=== PATIENT | female | born 1965 | race Caucasian/White ===

== ENCOUNTER 2016-12-23 07:18 | Day surgery (SDC) | payer OTHER ==
[2016-12-23] MEDS ORDERED: D5 LR 1000 ML 1,000 ML IV ONE (07:30)
[2016-12-23] MEDS ORDERED: DIPRIVAN VIAL 20 ML ONE (08:51)
[2016-12-23 09:58] VITALS: BP 115/67
== END 2016-12-23 09:30 | disposition home or self-care (01) ==
LOC: SURG1 07:18
PROVIDERS: ATTEND Internal Medicine Gastroenterology
PROC: 0DJ08ZZ Inspection of Upper Intestinal Tract, Via Natural or Artificial Opening Endoscopic (ICD-10-PCS; principal; 2016-12-23 13:45)
PROC: 0DB88ZX Excision of Small Intestine, Via Natural or Artificial Opening Endoscopic, Diagnostic (ICD-10-PCS; principal; 2016-12-23 13:45)
PROC: 0DB68ZX Excision of Stomach, Via Natural or Artificial Opening Endoscopic, Diagnostic (ICD-10-PCS; principal; 2016-12-23 13:45)
DX: R10.13 Epigastric pain (principal); R11.0 Nausea; K20.8 Other esophagitis
CPT/HCPCS: A4217; J3490; J7120

== ENCOUNTER 2016-12-30 07:22 | Day surgery (SDC) | payer OTHER ==
[2016-12-30] MEDS ORDERED: D5 LR 1000 ML 1,000 ML IV ONE (07:26)
[2016-12-30] MEDS ORDERED: DIPRIVAN VIAL 20 ML ONE (09:02)
[2016-12-30] MEDS ORDERED: XYLOCAINE 2 % (PLAIN) ONE (09:03)
[2016-12-30 10:28] VITALS: BP 112/69
== END 2016-12-30 09:45 | disposition home or self-care (01) ==
LOC: SURG1 07:22
PROVIDERS: ATTEND Internal Medicine Gastroenterology
PROC: 0DJD8ZZ Inspection of Lower Intestinal Tract, Via Natural or Artificial Opening Endoscopic (ICD-10-PCS; principal; 2016-12-30 07:30)
PROC: 0DBE8ZX Excision of Large Intestine, Via Natural or Artificial Opening Endoscopic, Diagnostic (ICD-10-PCS; principal; 2016-12-30 07:30)
DX: Z12.11 Encounter for screening for malignant neoplasm of colon (principal); R19.4 Change in bowel habit; R10.84 Generalized abdominal pain
CPT/HCPCS: A4217; J2001; J3490; J7120

== ENCOUNTER 2017-01-08 06:52 | Emergency (ER) | payer OTHER ==
--- NOTE | 2017-01-08 07:07 | DR.FBACK ---
HPI - HPI Comment HPI Comment: FOR ONE WEEK, INCREASING LOWER BACK, RIGHT VALENT[place] AND RIGHT THIGH PAIN. DURING WORK THIS WEEK, SAT FOR LONG PERIODS. NO TRAUMA. NO DYSURIA. <ISSAC GALEANA - Last Filed: 01/09/17 08:39> - Time Seen Time seen: 07:05 - Complaint Chief Complaint Doctor Comments: LOW BACK PAIN GOR FEW DAYS WORSE LAST NIGHT. - Reviewed Nurses Notes Review: Yes - Source History Provided: Patient - Mode of Arrival Mode of Arrival: Wheelchair - Duration Duration: Constant Duration: Days - Location Back Pain Location: Right, Lower, Lumbar Radiation To: Right, Thigh - Severity Severity: Moderate - Quality Quality: Sharp - Context Onset: Spontaneous Circumstance: Spontaneous History of: None - Modifying Factors Worsened By: Movement - Associated Signs and Symptoms Back Pain Symptoms: None Numbness: None Weakness: None <PARIS HILLIARD - Last Filed: 01/10/17 11:36> PMH - PMH Past Surgical History: Yes Surgical History: , Tonsillectomy - Family History Family Medical History: Diabetes Mellitus, Cancer, Hypertension - Social History Do you use any recreational Drugs:: No <PARIS HILLIARD - Last Filed: 01/10/17 11:36> ROS - Review of Systems Constitutional: No Symptoms Reported Eyes: No Symptoms Reported ENTM: No Symptoms Reported Respiratoy: No Symptoms Reported Cardiovascular: No Symptoms Reported Gastrointestinal/Abdominal: No Symptoms Reported Genitourinary: No Symptoms Reported Neurological: No Symptoms Reported Musculoskeletal: No Symptoms Reported, Joint Pain, Muscle Pain, Right, Hip Integumentary: No Symptoms Reported Hematologic/Lymphatic: No Symptoms Reported Endocrine: No Symptoms Reported All Other Systems: Reviewed and Negative <PARIS HILLIARD - Last Filed: 01/10/17 11:36> PE - Respiratory Respiratory Exam: Bilateral Clear to Auscultation <ISSAC GALEANA - Last Filed: 01/09/17 08:39> - General Limitations: No Limitations General Appearance: Alert - Head Head Exam: Normal Inspection - Eyes Eye exam: Normal Appearance - ENT ENT Exam: Normal External Ear Exam - Chest Chest Inspection: Symmetric Chest Wall Rise - Respiratory Respiratory Exam: Normal Lung Sounds Bilat Respiratory Exam: Bilateral Clear to Auscultation - Cardiovascular Cardiovascular Exam: Regular Rate, Normal Rhythm, Normal Heart Sounds - Abdominal Exam Abdominal Exam: Normal Bowel Sounds, Soft. negative: Tenderness - Genitourinary External Exam: Female: Deferred : Speculum Exam (Female): Deferred : Bimanual Exam (female): Deferred - Extremities Extremities Exam: Normal Inspection - Back Back Exam: Tenderness (RT LOWER BACK), (R) CVA Tenderness, Paraspinal Tenderness - Neurological Neurological Exam: Alert, Oriented X3 - Psychiatric Psychiatric Exam: Normal Affect, Normal Mood - Skin Skin Exam: Normal Color <PARIS HILLIARD - Last Filed: 01/10/17 11:36> - Vitals Vital Signs: Temp Pulse Resp BP Pulse Ox 01/08/17 07:08 97.8 F 72 22 136/77 96 12/30/16 09:35 112/69 MDM - Additional Information Additional Information Obtained From: Family - Differential Diagnosis Differential Diagnosis: DJD, Fracture, Musculoskeletal Pain, Pyelonephritis, Strain, Urolithiasis <PARIS HILLIARD - Last Filed: 01/10/17 11:36> Course - Treatment Treatment: SEE ORDERS. IM PAIN MED IN ED. PAIN DECREASING. - Reevaluation 1st: Improved - Education/Counseling Education/Counseling: Patient, Family, Education Educated On: Treatment, Diagnosis, Needs for Follow Up <PARIS HILLIARD - Last Filed: 01/10/17 11:36> ROR - Labs Reviewed Laboratory Results Reviewed?: Yes Result Diagrams: 01/08/17 08:30 01/08/17 08:30 <ISSAC GALEANA - Last Filed: 01/09/17 08:39> - Labs Reviewed Laboratory Results Reviewed?: Yes Result Diagrams: 01/08/17 08:30 01/08/17 08:30 - XRAY XRAY Interpreted by: Radiologist XRAY Findings: REPORT DISCUSS WITH PATIENT. <PARIS HILLIARD - Last Filed: 01/10/17 11:36> - Labs Reviewed Laboratory: WBC 4.8 X10^3/uL (3.6-10.0) 01/08/17 08:30 RBC 4.52 X10^6/uL (3.5-5.4) 01/08/17 08:30 Hgb 13.5 g/dL (12.0-16.0) 01/08/17 08:30 Hct 39.2 % (36.0-47.0) 01/08/17 08:30 MCV 86.8 fL (80.0-100.0) 01/08/17 08:30 MCH 30.0 pg (27.0-34.0) 01/08/17 08:30 MCHC 34.6 g/dL (33.0-35.0) 01/08/17 08:30 RDW 13.1 % (11.6-16.5) 01/08/17 08:30 Plt Count 215 X10^3/uL (150.0-450.0) 01/08/17 08:30 MPV 7.6 fL (7.4-11.0) 01/08/17 08:30 Neut % 65.5 % (42.0-75.0) 01/08/17 08: Lymph % 20.6 % (21.0-51.0) L 01/08/17 08:30 [place] % 11.7 % (0.0-13.0) 01/08/17 08:30 Eos % 1.4 % (0.9-2.9) 01/08/17 08:30 Baso % 0.8 % (0.2-1.0) 01/08/17 08:30 Neut # 3.2 x10^3/uL (2.2-4.8) 01/08/17 08:30 Lymph # 1.0 X10^3/uL (1.3-2.9) L 01/08/17 08:30 [place] # 0.6 x10^3/uL (0.3-0.8) 01/08/17 08:30 Eos # 0.1 x10^3/uL (0.0-0.2) 01/08/17 08:30 Baso # 0.0 X10^3/uL (0.0-0.1) 01/08/17 08:30 Absolute Nucleated RBC 0.0 /100WBC 01/08/17 08:30 D-Dimer < 100 ng/mL (0-400) 01/08/17 08:30 Sodium 143 mmol/L (136-145) 01/08/17 08:30 Corrected Sodium TNP 01/08/17 08:30 Potassium 3.9 mmol/L (3.5-5.1) 01/08/17 08:30 Chloride 108 mmol/L (98-107) H 01/08/17 08:30 Carbon Dioxide 26.3 mmol/L (21-32) 01/08/17 08:30 BUN 11 mg/dL (7-18) 01/08/17 08:30 Creatinine 0.86 mg/dL (0.55-1.02) 01/08/17 08:30 Est GFR (MDRD) Af Amer > 60 (>60) 01/08/17 08:30 Est GFR (MDRD) Non-Af > 60 (>60) 01/08/17 08:30 Glucose 92 mg/dL (65-99) 01/08/17 08:30 Calcium 9.1 mg/dL (8.5-10.1) 01/08/17 08:30 Corrected Calcium TNP 01/08/17 08:30 Total Bilirubin 0.30 mg/dL (0.2-1.0) 01/08/17 08:30 AST 17 Units/L (15-37) 01/08/17 08:30 ALT 25 Units/L (12-78) 01/08/17 08:30 Alkaline Phosphatase 64 Units/L (46-116) 01/08/17 08:30 Total Protein 6.5 g/dL (6.4-8.2) 01/08/17 08:30 Albumin 3.7 g/dL (3.4-5.0) 01/08/17 08:30 Globulin 2.8 g/dL (2.5-4.5) 01/08/17 08:30 Albumin/Globulin Ratio 1.3 Ratio (1.1-2.1) 01/08/17 08:30 Specimen Type Clean catch urine 01/08/17 07:55 Urine Color Yellow (YELLOW) 01/08/17 07:55 Urine Appearance Clear (CLEAR) 01/08/17 07:55 Urine pH 6.0 (5.0 - 8.0) 01/08/17 07:55 Ur Specific [place] 1.025 (1.000-1.030) 01/08/17 07:55 Urine Protein Negative (NEGATIVE) 01/08/17 07:55 Urine Glucose (UA) Negative (NEGATIVE) 01/08/17 07:55 Urine Ketones Negative (NEGATIVE) 01/08/17 07:55 Urine Occult Blood Negative (NEGATIVE) 01/08/17 07:55 Urine Nitrite Negative (NEGATIVE) 01/08/17 07:55 Urine Bilirubin Negative (NEGATIVE) 01/08/17 07:55 Urine Urobilinogen Normal (NORMAL) 01/08/17 07:55 Ur Leukocyte Esterase Negative (NEGATIVE) 01/08/17 07:55 Urine RBC Negative /HPF (NEGATIVE) 01/08/17 07:55 Urine WBC Rare /HPF (NEGATIVE) 01/08/17 07:55 Ur Squamous Epith Cells Few /HPF (NEGATIVE) 01/08/17 07:55 Urine Bacteria Trace /HPF (NEGATIVE) 01/08/17 07:55 Ur Culture Indicated? No/not indicated 01/08/17 07:55 <ISSAC GALEANA - Last Filed: 01/09/17 08:39> <PARIS HILLIARD - Last Filed: 01/10/17 11:36> - Diagnosis Discharge Problem: Low back pain Qualifiers: Chronicity: acute Back pain laterality: bilateral Sciatica presence: with sciatica Sciatica laterality: sciatica of left side Qualified Code(s): M54.42 - Lumbago with sciatica, left side - Discharge Plan Disposition: 01 HOME, SELF-CARE Condition: Stable - Follow ups/Referrals Follow ups/Referrals: NFD,None [Primary Care Provider] - 3 days - Instructions Instructions: Back Pain, Adult, [id number]
[2017-01-08 07:12] VITALS: BP 136/77; BMI 27.3
[2017-01-08] MEDS ORDERED: TORADOL 60 MG VIAL IM ONE (07:13)
[2017-01-08] MEDS ORDERED: NORFLEX INJ IM ONE (07:13)
[2017-01-08] MEDS ORDERED: NORFLEX INJ ONE (07:16)
[2017-01-08] MEDS ORDERED: TORADOL 60 MG VIAL ONE (07:16)
--- NOTE | 2017-01-08 07:59 | CT ---
CT OF THE ABDOMEN AND PELVIS WITHOUT CONTRAST HISTORY: Worsening back pain Comparison: 01/09/2016 Technique: Multiple axial images of the abdomen and pelvis were obtained from the lung bases to the pubic symphy sis without the administration of IV contrast. Dose reduction techniques including Automated Exposur e Control (AEC) and adjustment of mA and kV were utlized. Findings: The heart is normal in size. There is no pericardial effusion. Lung bases are clear without focal con solidation, pleural effusion or pneumothorax. 3 mm right lower lobe nodule on series 3, image 1 The sensitivity for focal lesion detection within the solid abdominal viscera is diminished without t he use of IV contrast. Liver and spleen are normal in size, and contour. No focal lesions. No ductal dilitation. Gallbladder is present. No calcified gallstones or gallbladder wall thickening. The pancreas is unremarkable. Ad renal glands are normal. Kidneys are normal in contour without hydronephrosis or nephrolithiasis. No bowel obstruction or inflammation. Normal appendix No abnormal appearing mesenteric or retroperito aly lymph nodes. No free fluid or fluid collections. The bladder is normal in appearance. Uterus present. No free fluid or abnormal pelvic lymph nodes. IU D within the uterus. No aggressive osseous lesions. IMPRESSION: 1. No source of patient's back pain is identified on this examination. 2. 3 mm right lower lobe pulmonary nodule Recommend correlation with prior exams if available to conf irm stability. Otherwise, if patient is at low risk for lung cancer, no further follow up needed; if patient is at high risk for lung cancer, optional followup CT at 12 months. http://pubs.rsna.org/doi/abs/[email or web address] Reported By:
[2017-01-08 08:04] LABS: BILIRUBIN,URINE NEGATIVE (NEGATIVE); BLOOD/HEMOGLOBIN,URINE NEGATIVE (NEGATIVE); GLUCOSE, URINE NEGATIVE (NEGATIVE); KETONES,URINE NEGATIVE (NEGATIVE); LEUKOCYTE ESTERASE ,URINE NEGATIVE (NEGATIVE); NITRITES,URINE NEGATIVE (NEGATIVE); PROTEIN,URINE NEGATIVE (NEGATIVE); UROBILINOGEN,URINE NORMAL (NORMAL)
[2017-01-08 08:21] LABS: COLOR,URINE YELLOW (YELLOW)
[2017-01-08 08:22] LABS: APPEARANCE,URINE CLEAR (CLEAR); BACTERIA,URINE TRACE /HPF (NEGATIVE); RBC,URINE NEGATIVE /HPF (NEGATIVE); SQUAMOUS EPITHELIAL CELL,UR FEW /HPF (NEGATIVE)
[2017-01-08] MEDS ORDERED: PHENERGAN INJ 25 MG ONE (08:30)
[2017-01-08] MEDS ORDERED: DEMEROL INJ ONE (08:30)
[2017-01-08] MEDS ORDERED: DEMEROL INJ IVP ONE (08:40)
[2017-01-08] MEDS ORDERED: PHENERGAN INJ 25 MG IVP ONE (08:40)
[2017-01-08 08:43] LABS: BASOPHILS % (AUTO) 0.8 % (0.2-1.0); EOSINOPHILS # (AUTO) 0.1 x10^3/uL (0.0-0.2); EOSINOPHILS % (AUTO) 1.4 % (0.9-2.9); HEMATOCRIT 39.2 % (36.0-47.0); HEMOGLOBIN 13.5 g/dL (12.0-16.0); LYMPHOCYTES % (AUTO) 20.6 % (21.0-51.0); MEAN CORPUSCULAR HGB CONC 34.6 g/dL (33.0-35.0); MEAN CORPUSCULAR VOLUME 86.8 fL (80.0-100.0); MEAN PLATELET VOLUME 7.6 fL (7.4-11.0); MONOCYTES # (AUTO) 0.6 x10^3/uL (0.3-0.8); MONOCYTES % (AUTO) 11.7 % (0.0-13.0); NEUTROPHILS # (AUTO) 3.2 x10^3/uL (2.2-4.8); NEUTROPHILS % (AUTO) 65.5 % (42.0-75.0); PLATELET COUNT 215 X10^3/uL (150.0-450.0); RED BLOOD COUNT 4.52 X10^6/uL (3.5-5.4); RED CELL DISTRIBUTION WIDTH 13.1 % (11.6-16.5); WHITE BLOOD COUNT 4.8 X10^3/uL (3.6-10.0)
[2017-01-08 08:57] LABS: ALANINE AMINOTRANSFERASE 25 Units/L (12-78); ALBUMIN 3.7 g/dL (3.4-5.0); ALKALINE PHOSPHATASE 64 Units/L (46-116); ASPARTATE AMINO TRANSFERASE 17 Units/L (15-37); BLOOD UREA NITROGEN 11 mg/dL (7-18); CALCIUM 9.1 mg/dL (8.5-10.1); CARBON DIOXIDE 26.3 mmol/L (21-32); CHLORIDE 108 mmol/L (98-107); CREATININE 0.86 mg/dL (0.55-1.02); SODIUM 143 mmol/L (136-145); TOTAL PROTEIN 6.5 g/dL (6.4-8.2); eGFR BLACK RACES > 60 (>60); eGFR NON BLACK RACES > 60 (>60)
--- NOTE | 2017-01-08 09:59 | VAS ---
VENOUS ULTRASOUND DOPPLER EXAMINATION OF THE LEFT LOWER EXTREMITY HISTORY: Leg pain Comparison: None TECHNIQUE: Multiple taylor scale and color flow Doppler images of the deep venous system were obtained of the left lower extremity. FINDINGS: The deep venous system of the left lower extremity was evaluated from the level of the common femoral vein through the popliteal vein. Normal color flow and augmentation can be observed. In addition, normal compression is seen throughout the deep venous system. IMPRESSION: 1. Negative for DVT. Reported By:
== END 2017-01-08 10:15 | disposition home or self-care (01) ==
LOC: ER 06:52
DX: M54.12 Radiculopathy, cervical region (principal)
CPT/HCPCS: 36415; 74176; 80053; 81001; 85025; 85378; 93971; 96365; 96372; 96374; 96375; 99283; A4222; J1885; J2175; J2360; J2550

== ENCOUNTER → 2017-03-07 | Outpatient (CLI) | payer OTHER ==
[2017-03-07 09:59] LABS: CREATININE 0.96 mg/dL (0.55-1.02)
--- NOTE | 2017-03-07 14:25 | CT ---
History: Right lower lobe pulmonary nodule. EXAM: NONCONTRAST CHEST CT EXAMINATION. Technique: Axial CT images of the chest performed with sagittal and coronal reformatted CT images of the chest without the benefit of IV contrast. Comparison: 01/08/2017. Findings: There is an unchanged right lower lobe pulmonary nodule. No consolidation or effusion is seen. No o ther pulmonary nodule is seen. There is no evidence for aortic aneurysm or acute aortic pathology. Th e thoracic inlet is unremarkable. No pulmonary embolism is seen. No pathologic thoracic adenopathy is evident. There is a calcification versus clip seen in the left breast. No axillary adenopathy is visible. No other acute cardiopulmonary abnormality is seen. No acute fracture or destructive lytic bony lesion is observed. The upper abdomen is stable from prior. Impression: Unchanged right lower lobe 3 mm lung nodule. No other cardiopulmonary abnormalities are seen. Fleischner society pulmonary nodule recommendations Nodule size (mm) less than or equal to 4 low risk patients - no follow-up needed high risk patients - follow-up at 12 months and if no change, no further imaging needed Nodule size > 4-6 mm low risk patients - follow-up at 12 months and if no change, no further imaging needed high risk patients - initial follow-up CT at 6-12 months and then at 18-24 months if no change Nodule size > 6-8 mm low risk patients - initial follow-up CT at 6-12 months and then at 18-24 months if no change high risk patients - initial follow-up CT at 3-6 months and then at 9-12 and 24 months if no change Nodule size > 8 mm either low or high risk patients o follow-up CTs at around 3, 9, and 24 months o dynamic contrast enhanced CT, PET, and/or biopsy Note: newly detected indeterminate nodule in persons 35 years of age or older. low risk patients - minimal or absent history of smoking and or other known risk factors high risk patients - history of smoking or of other known risk factors Reported By:
== END ==
LOC: RAD 09:28
PROVIDERS: ATTEND Internal Medicine Pulmonary Disease
DX: R91.1 Solitary pulmonary nodule (principal)
CPT/HCPCS: 36415; 71260; 82565; 84520; A4222